=== PATIENT | male | born 1960 | race Hispanic/Latino ===

== ENCOUNTER 2018-07-07 11:45 | Emergency (ER) | payer BC, SELFPAY ==
--- OUTSIDE RECORDS SUMMARY | 2018-07-07 11:49 | XMS REPORT ---
:1960 [facility] Address [address] [place] [address] Dr. Dempsey [address] [place] [id number] Care Team Providers Name Role Phone Unavailable Unavailable Unavailable Problems This patient has no known problems. Allergies, Adverse Reactions, Alerts This patient has no known allergies or adverse reactions. Medications This patient has no known medications.
[2018-07-07] MEDS ORDERED: TETANUS & DIPHTHERIA TOX,ADULT 0.5 ML VIAL ONE (12:41)
[2018-07-07] MEDS ORDERED: LIDOCAINE 1% W/EPI 1:100,000 MDV 50 ML VIAL ONE (12:41)
--- NOTE | 2018-07-07 13:27 | ER ---
Nurse's Notes [facility] Name: Amadou Patterson Sr Age: 58 yrs Sex: Male : 1960 Arrival Date: 07/07/2018 Time: 11:48 Bed 4 Private MD: Diagnosis: Laceration without foreign body of lower leg-left Presentation: 07/07 11:49 Presenting complaint: Patient states: laceration to the LLE by a knife. He was cutting sv a brisket and the knife fell off the counter and went into his leg. Transition of care: patient was not received from another setting of care. Complicating Factors: The type of wound is a puncture. Onset of symptoms was July 07, 2018. Care prior to arrival: None. 11:49 Method Of Arrival: Wheelchair sv 11:49 Acuity: YAIR 3 sv 14:04 Risk Assessment: Do you want to hurt yourself or someone else? Patient reports no aj1 desire to harm self or others. Initial Sepsis Screen: Does the patient meet any 2 criteria? HR > 90 bpm. No. Patient's initial sepsis screen is negative. Does the patient have a suspected source of infection? Yes: Skin breakdown/wound. Historical: - Allergies: 11:51 No Known Allergies; sv - PMHx: 11:51 Diabetes - NIDDM; Hypertension; sv - PSHx: 11:51 multiple ortho repairs; sv - Immunization history:: Last tetanus immunization: unknown. - Social history:: Smoking status: Patient/guardian denies using tobacco. - Ebola Screening: : Patient denies travel to an Ebola-affected area in the 21 days before illness onset. Screenin:00 Abuse screen: Denies threats or abuse. Denies injuries from another. Nutritional aj1 screening: No deficits noted. Tuberculosis screening: No symptoms or risk factors identified. 14:04 Fall Risk None identified. aj1 Assessment: 12:00 General: Appears in no apparent distress. comfortable, Behavior is calm, cooperative, aj1 appropriate for age. Pain: Complains of pain in left reynolds. Neuro: Level of Consciousness is awake, alert, obeys commands, Oriented to person, place, time, situation. Cardiovascular: Patient's skin is warm and dry. Respiratory: Airway is patent Respiratory effort is even, unlabored, Respiratory pattern is regular, symmetrical. GI: No signs and/or symptoms were reported involving the gastrointestinal system. : No signs and/or symptoms were reported regarding the genitourinary system. EENT: No signs and/or symptoms were reported regarding the EENT system. Derm: No signs and/or symptoms reported regarding the dermatologic system. Skin is pink, warm \T\ dry. normal. Musculoskeletal: Circulation, motion, and sensation intact. Injury Description: Laceration sustained to left reynolds is 2.6 to 7.5 cm long, bleeding moderately. 13:00 Reassessment: Patient appears in no apparent distress at this time. No changes from aj1 previously documented assessment. Patient and/or family updated on plan of care and expected duration. Pain level reassessed. Patient is alert, oriented x 3, equal unlabored respirations, skin warm/dry/pink. 13:45 Reassessment: Patient reports that he is worried about having pain when he gets home. aj1 Notified SACHA Pineda. Patient will receive Rx for pain. Vital Signs: 11:51 BP 150 / 86; Pulse 110; Resp 20; Temp 98; Pulse Ox 98% ; Weight 136.08 kg; Height 6 ft. sv 2 in. (187.96 cm); Pain 10/10; 14:01 BP 117 / 66; Pulse 93; Resp 18; Pulse Ox 95% on R/A; aj1 11:51 Body Mass Index 38.52 (136.08 kg, 187.96 cm) sv ED Course: 11:48 Patient arrived in ED. mr 11:50 Triage completed. sv 11:51 Hi Maldonado PA is PHCP. cp 11:51 Hi Ochoa MD is Attending Physician. cp 11:51 Arm band placed on. sv 12:00 Patient has correct armband on for positive identification. aj1 12:00 No provider procedures requiring assistance completed. aj1 12:23 Shireen Morin, YVROSE is Primary Nurse. aj1 13:31 Tib Fib Left In Process Unspecified. EDMS 13:45 Patient did not have IV access during this emergency room visit. Wound care: to aj1 laceration located on left reynolds was cleaned with Hibiclens, irrigated with normal saline, dressed with nonadherent dressing, covered with 4x4 and secured Kerlix. Administered Medications: 12:37 Drug: Tetanus-Diphtheria Toxoid Adult 0.5 ml {Blower Operator: [employer]. Exp: aj1 05/02/2020. Lot #: [id number]. } Route: IM; Site: right deltoid; 14:06 Follow up: Response: No adverse reaction aj1 13:00 Drug: Lidocaine-Epinephrine -1%: (1:100,000) 10 ml {Note: administered by SACHA Pineda.} aj Volume: 20 ml; Route: Infiltration; 14:05 Follow up: Response: No adverse reaction aj Outcome: 13:25 Discharge ordered by MD. jeffries 14:04 Discharged to home via wheelchair, with family. aj1 14:04 Condition: good 14:04 Discharge instructions given to patient, family, Instructed on discharge instructions, follow up and referral plans. no drinking with medication, no driving heavy equipment, medication usage, Demonstrated understanding of instructions, follow-up care, medications, Prescriptions given X 2. 14:11 Patient left the ED. aj1 Signatures: Dispatcher [employer] EDShireen Escamilla RN RN aj1 Verde, Stephanie, RN RN Yanci Scanlon Corey, PA PA cp
--- NOTE | 2018-07-07 13:27 | EDPHYS ---
Physician Documentation [facility] Name: Amadou Patterson Sr Age: 58 yrs Sex: Male : 1960 Arrival Date: 07/07/2018 Time: 11:48 Bed 4 Private MD: ED Physician Hi Ochoa HPI: 07/07 12:00 This 58 yrs old Male presents to ER via Wheelchair with complaints of cp Laceration To Leg. 12:00 The patient has a laceration occurred at home. cp 12:00 The laceration(s) is(are) located on the anterior aspect left lower leg. Onset: The cp symptoms/episode began/occurred just prior to arrival. Associated signs and symptoms: Pertinent positives: heavy bleeding, Pertinent negatives: dizziness, numbness distal to injury. Patient reports dropping knife that caused laceration to left lower leg. Historical: - Allergies: 11:51 No Known Allergies; sv - PMHx: 11:51 Diabetes - NIDDM; Hypertension; sv - PSHx: 11:51 multiple ortho repairs; sv - Immunization history:: Last tetanus immunization: unknown. - Social history:: Smoking status: Patient/guardian denies using tobacco. - Ebola Screening: : Patient denies travel to an Ebola-affected area in the 21 days before illness onset. ROS: 12:05 Constitutional: Negative for body aches, chills, fever, poor PO intake. cp 12:05 Eyes: Negative for injury, pain, redness, and discharge. cp 12:05 ENT: Negative for drainage from ear(s), ear pain, sore throat, difficulty swallowing, difficulty handling secretions. 12:05 Cardiovascular: Negative for chest pain. 12:05 Respiratory: Negative for cough, wheezing. 12:05 Abdomen/GI: Negative for abdominal pain, nausea, vomiting, and diarrhea. 12:05 Skin: Positive for laceration(s), of the left lower leg. 12:05 Neuro: Negative for numbness, weakness. 12:05 All other systems are negative. Exam: 12:15 Constitutional: The patient appears in no acute distress, alert, awake, cp non-diaphoretic, well developed, well nourished, obese. 12:15 Head/Face: Normocephalic, atraumatic. cp 12:15 Eyes: Periorbital structures: appear normal, Conjunctiva: normal, Lids and lashes: appear normal, bilaterally. 12:15 ENT: External ear(s): are unremarkable, Nose: is normal, Mouth: is normal. 12:15 Chest/axilla: Inspection: normal. 12:15 Cardiovascular: Rate: tachycardic. 12:15 Respiratory: the patient does not display signs of respiratory distress, Respirations: normal, no use of accessory muscles, no retractions, no splinting, no tachypnea. 12:15 Musculoskeletal/extremity: noted tenderness along anterior left tibia. 12:15 Skin: injury, laceration(s), the wound is approximately 5 cm(s), of the anterior aspect left lower leg, that can be described as clean, linear, with moderate bleeding. Vital Signs: 11:51 BP 150 / 86; Pulse 110; Resp 20; Temp 98; Pulse Ox 98% ; Weight 136.08 kg; Height 6 ft. sv 2 in. (187.96 cm); Pain 10/10; 14:01 BP 117 / 66; Pulse 93; Resp 18; Pulse Ox 95% on R/A; aj1 11:51 Body Mass Index 38.52 (136.08 kg, 187.96 cm) sv Laceration: 13:23 Wound Repair of 5cm ( 2.0in ) subcutaneous laceration to anterior aspect left lower cp leg. Linear shaped.. Distal neuro/vascular/tendon intact. Anesthesia: Wound infiltrated with 8 mls of 1% lidocaine w/ Epi. Wound prep: Moderate cleansing by me, Wound irrigation by me. Skin closed with 7 4-0 Prolene using interrupted sutures and sterile technique. Dressed with Bacitracin, 4x4's, Kerlix. Patient tolerated well. MDM: 11:51 Patient medically screened. cp 12:30 Differential diagnosis: superficial laceration, tendon injury, vascular injury. cp 13:25 Data reviewed: vital signs, nurses notes, radiologic studies, plain films. cp 13:25 Test interpretation: by ED physician or midlevel provider: plain radiologic studies. cp Counseling: I had a detailed discussion with the patient and/or guardian regarding: the historical points, exam findings, and any diagnostic results supporting the discharge/admit diagnosis, radiology results, to return to the emergency department if symptoms worsen or persist or if there are any questions or concerns that arise at home. Response to treatment: the patient's symptoms have markedly improved after treatment, and as a result, I will discharge patient. 07/07 12:41 Order name: Tib Fib Left; Complete Time: 14:00 EDMS 07/07 14:00 Interpretation: Report reviewed. cp 07/07 12:13 Order name: Prolene, Sutures; Complete Time: 12:36 cp 07/07 12:13 Order name: Dressing - Wound; Complete Time: 12:24 cp 07/07 12:13 Order name: Gloves, Sterile; Complete Time: 12:37 cp 07/07 12:13 Order name: Setup Suture Tray; Complete Time: 12:37 cp Administered Medications: 12:37 Drug: Tetanus-Diphtheria Toxoid Adult 0.5 ml {Mica Patcher: [employer]. Exp: aj1 05/02/2020. Lot #: [id number]. } Route: IM; Site: right deltoid; 14:06 Follow up: Response: No adverse reaction aj 13:00 Drug: Lidocaine-Epinephrine -1%: (1:100,000) 10 ml {Note: administered by PA. Miriam} aj Volume: 20 ml; Route: Infiltration; 14:05 Follow up: Response: No adverse reaction aj Disposition: 07/08 07:50 Co-signature as Attending Physician, Hi Ochoa MD I agree with the assessment and [facility] plan of care. Disposition: 07/07/18 13:25 Discharged to Home. Impression: Laceration without foreign body of lower leg - left. - Condition is Stable. - Discharge Instructions: Laceration Care, Adult. - Prescriptions for Tylenol- Codeine #3 300-30 mg Oral Tablet - take 2 tablets by ORAL route every 8 hours As needed; 12 tablet. - Medication Reconciliation Form, Thank You Letter, Antibiotic Education, Prescription Opioid Use form. - Follow up: Private Physician; When: 10 - 14 days; Reason: Staple/Suture removal. - Problem is new. - Symptoms have improved. Signatures: Dispatcher [employer] EDShireen Escamilla RN RN ajLillie Bentley RN RN sv Anderson, Corey, MD MD cha Page, Corey, PA PA cp Corrections: (The following items were deleted from the chart) 07/07 12:41 12:13 Tib Fib Right+[email or web address] ordered. EDSC EDMS 14:11 13:25 07/07/2018 13:25 Discharged to Home. Impression: Laceration without foreign body aj1 of lower leg - left. Condition is Stable. Forms are Medication Reconciliation Form, Thank You Letter, Antibiotic Education, Prescription Opioid Use. Follow up: Private Physician; When: 10 - 14 days; Reason: Staple/Suture removal. Problem is new. Symptoms have improved. cp
--- NOTE | 2018-07-07 13:52 | RAD REPORT ---
EXAM DESCRIPTION: Wallace Brown Left07/07/2018 1:30 pm CLINICAL HISTORY: Left leg pain status post injury FINDINGS: No fracture is seen. Large plantar calcaneal spur
[2018-07-07 14:19] VITALS: TEMP 98
[2018-07-07 14:23] VITALS: BP 117/66; O2SAT 95
== END 2018-07-07 14:11 | disposition home or self-care (01) ==
LOC: ER 11:45
PROC: 0JQP0ZZ Repair Left Lower Leg Subcutaneous Tissue and Fascia, Open Approach (ICD-10-PCS; principal; 2018-07-07)
DX: S81.812A Laceration without foreign body, left lower leg, initial encounter (principal); W26.0XXA Contact with knife, initial encounter; E11.9 Type 2 diabetes mellitus without complications; I10 Essential (primary) hypertension; Z23 Encounter for immunization
CPT/HCPCS: 90714; 99284